=== PATIENT | female | born 1995 | race Hispanic/Latino ===

== ENCOUNTER 2016-11-11 10:41 | Emergency (ER) | payer SELFPAY ==
[2016-11-11 10:48] VITALS: BP 141/71; PULSE 82; RESP 20; TEMP 98.4; O2SAT 98
--- NOTE | 2016-11-11 11:26 | ED PDOC ---
HPI: Eye Injury/Pain Time Seen by Provider: 11/11/16 10:48 Chief Complaint (Nursing): Eye Problem Chief Complaint (Provider): right eye swelling History Per: Patient History/Exam Limitations: no limitations Onset/Duration Of Symptoms: Days (x 1) Additional Complaint(s): Ericka Sahni is a 21 year old female, with no previous medical history, who presents to the ED for evaluation of right lower eye swelling intermittently ongoing for the past day. Patient denies any fever, chills, pain to the area, decreased vision, chest pain, shortness of breath, injury, contact use, sore throat, runny nose, headache or itchiness. [place] the [place] and applying sunscreen to her face, she also reports applying Aloe Vera to her face to help with the sunburn. Has suburn to body from staying in sun for 10 hrs Thursday. PMD: none provoded Past Medical History Reviewed: Historical Data, Nursing Documentation, Vital Signs Vital Signs: Last Vital Signs Temp 98.4 F 11/11/16 10:47 Pulse 82 11/11/16 10:47 Resp 20 11/11/16 10:47 BP 141/71 11/11/16 10:47 Pulse Ox 98 11/11/16 10:47 - Medical History PMH: No Chronic Diseases - Surgical History Surgical History: No Surg Hx - Family History Family History: States: Unknown Family Hx - Allergies Allergies/Adverse Reactions: Allergies Allergy/AdvReac Type Severity Reaction Status Date / Time No Known Allergies Allergy Verified 11/11/16 10:54 Review of Systems ROS Statement: Except As Marked, All Systems Reviewed And Found Negative Constitutional: Negative for: Fever, Chills Eyes: Positive for: Other (lower below eye swelling). Negative for: Pain, Vision Change, Conjunctivae Inflammation, Eyelid Inflammation, Redness Cardiovascular: Negative for: Chest Pain Respiratory: Negative for: Cough, Shortness of Breath Gastrointestinal: Negative for: Abdominal Pain Skin: Positive for: Rash (general sunburn) Neurological: Negative for: Weakness Physical Exam - Reviewed Nursing Documentation Reviewed: Yes Vital Signs Reviewed: Yes - Physical Exam Appears: Positive for: Non-toxic, No Acute Distress Head Exam: Positive for: ATRAUMATIC, NORMAL INSPECTION, NORMOCEPHALIC Skin: Positive for: Warm, Dry. Negative for: Normal Color (sunburn to the superficial skin of the face, bilateral shoulders, chest and neck ) Eye Exam: Positive for: EOMI, PERRL, Periorbital swelling (minimal right infraorbital swelling with skin peeling; sunburn erythema with no induration), Other (no foreign body under eye lids R; no erythema of conjunctiva). Negative for: Nystagmus, Periorbital tenderness, Conjunctival injection, Scleral icterus ENT: Positive for: Normal ENT Inspection Neck: Positive for: Normal, Painless ROM, Supple Cardiovascular/Chest: Positive for: Regular Rate, Rhythm Respiratory: Positive for: CNT, Normal Breath Sounds Back: Positive for: Normal Inspection. Negative for: L CVA Tenderness, R CVA Tenderness Extremity: Positive for: Normal ROM. Negative for: Tenderness, Pedal Edema Neurologic/Psych: Positive for: Alert, Oriented - ECG O2 Sat by Pulse Oximetry: 98 (RA) Pulse Ox Interpretation: Normal - Progress ED Course And Treament: 1154: Stable. Likely cause of sunburn. Pt. states swelling comes and goes. Continue using aloe, motrin for inflammation. Ice. Fu with pcp. Do [facility] Visit for re-eval. Medical Decision Making Medical Decision Making: Initial Impression: eye swelling Initial Plan: * physical exam * disposition Upon provider evaluation patient is medically stable, and requires no further treatment in the ED at this time. Patient will be discharged home . Counseling was provided and all questions were answered regarding diagnosis. There is agreement to discharge plan. Return if symptoms persist or worsen. Scribe Attestation: Documented by Sonja Gamble, acting as a scribe for Gil Jacobs MD. Provider Scribe Attestation: All medical record entries made by the Scribe were at my direction and personally dictated by me. I have reviewed the chart and agree that the record accurately reflects my personal performance of the history, physical exam, medical decision making, and the department course for this patient. I have also personally directed, reviewed, and agree with the discharge instructions and disposition. Disposition - Clinical Impression Clinical Impression: Sunburn - Patient ED Disposition Is Patient to be Admitted: No Counseled Patient/Family Regarding: Diagnosis, Need For Followup - Disposition Referrals: [facility] [Outside] - 11/12/16 Disposition: Routine/Home Disposition Time: 11:56 Condition: STABLE Additional Instructions: Return if not better in 3 days. Instructions: Sunburn (ED)
== END 2016-11-11 12:13 | disposition home or self-care (01) ==
LOC: H.ER 10:41
DX: L55.9 Sunburn, unspecified (principal)